=== PATIENT | male | born 1975 | race Caucasian/White ===

== ENCOUNTER 2025-03-07 23:50 | Emergency (ER) | payer BC, SELFPAY ==
[2025-03-07 23:56] VITALS: BP 135/88
--- NOTE | 2025-03-08 01:59 | ED.MUSCINJ ---
HPI-Injury
<Isis Ruizbrooklyn Corral GRICEL - Last Filed: 03/08/25 03:02>
General
Chief Complaint: Musculo-Skeletal Complaint
Source: patient
Time Seen by Provider: 03/08/25 01:53
History of Present Illness-Injury
Initial Injury comments:
Patient is a 49 y/o M who presents to ED with distal L 3rd digit ecchymosis and swelling after finger was caught on [employer] starter about 14 hours ago at home. Patient became concerned when finger began to swell and pain increased.
Past History
<Isis Ruizbrooklyn Corral GRICEL - Last Filed: 03/08/25 03:02>
Past History
ED Past Medical History: Hypercholesterolemia
ED Past Surgical History: Orthopedic
Social History
Tobacco: Non-smoker
Review of Systems
<Isis Alex Corral GRICEL - Last Filed: 03/08/25 03:02>
Review of Systems
Allergies reviewed?: Yes
Constitutional: Reports no symptoms
Respiratory: Reports no symptoms
Cardiac: Reports no symptoms
Musculoskeletal Injury Exam
<Isis Ruizbrooklyn Corral GRICEL - Last Filed: 03/08/25 03:02>
Musculoskeletal Injury Exam
Left Third Finger:
Pain with Movement?: Moderate
Tender to palpation?: Severe
Soft tissue swelling?: Severe
External deformity and angulation?: None
Joint effusion?: None
Contusion?: Severe
Hematoma-local bleeding into tissue?: None
Strain- Sprain- Tear (Connective tissue injury)?: Mild
Crepitus with movement?: No
Joint instability?: No
Malalignment/deformity?: No
Range of motion: Limited
Distal skin color and temperature: normal-warm & good color
Capillary Refill: normal
Normal distal neurovascular exam?: Yes
Phy Exam
<Isis Corral [facility] - Last Filed: 03/08/25 03:02>
General Physical Exam
General Presentation: well appearing and no apparent distress
General age: appears stated age
General Skin: warm and dry
General Habitus: normal
General Mental: alert
General Hydration: appears well hydrated
Cardiovascular Exam
Cardiovascular Exam: regular rate/rhythm
Heart Sounds: normal
Pulmonary Exam
Pulmonary Exam: lungs clear
Musculoskeletal Exam
Musculoskeletal Exam: full ROM, joint swelling (L 3rd distal phalanx ) and neuro vasc intact
Injury Course
<Isis Corral [facility] - Last Filed: 03/08/25 03:02>
Orders/Labs/Results
Orders:
Orders
03/08/25 00:00
CR Finger(s)/thumb Min 2 Vw Lt Urgent
Reason For Exam: injury, sweling & ecchymosis
Indicate Which Finger:: Middle Finger
03/08/25 02:07
Aluminium Finger Splint Left ONCE
<Catarina Daniel DO - Last Filed: 03/08/25 02:14>
Orders/Labs/Results
Orders:
Orders
03/08/25 00:00
CR Finger(s)/thumb Min 2 Vw Lt Urgent
Reason For Exam: injury, sweling & ecchymosis
Indicate Which Finger:: Middle Finger
03/08/25 02:07
Aluminium Finger Splint Left ONCE
<Isis Corral [facility] - Last Filed: 03/08/25 03:02>
MDM/Problems Addressed
Differential Diagnosis Includes:
Differential diagnosis includes but is not limited to:
1. Distal phalanx fracture
2. Contusion
3. Sprain
4. Strain
MDM/Problems Addressed:
1. L 3rd digit injury
- Finger xray 2 view minimum
-Ice for soft tissue swelling
-Ibuprofen as needed for pain
-Applied frog splint
-Follow up outpatient with orthopedics, hand specialist
<TEHO Singh - Last Filed: 03/08/25 03:02>
*Pulse Oximetry
SaO2: 97
Oxygen Mode of Delivery: Room air
<Catarina Daniel DO - Last Filed: 03/08/25 02:14>
*Radiology
Radiology exam reviewed: preliminary read by ED provider (Fracture of the distal phalanx long digit with mild dorsal displacement.)
*Pulse Oximetry
Patient hypoxic: no
*Critical Care Note
Total Time (30-74mins, 75-104mins- exclusive of procedures): Not Applicable
<THEO Singh - Last Filed: 03/08/25 03:02>
Update Note
Update Note:
Finger xray revealed L 3rd distal phalanx displaced fracture
ED Attending Note
<THEO Singh - Last Filed: 03/08/25 03:02>
-
Portions of this chart may have been created with voice recognition software.� Occasional wrong word or��sound alike� substitutions may have occurred due to the inherent limitations of voice recognition software.
<Catarina Daniel DO - Last Filed: 03/08/25 02:14>
ED Attending Note
Patient seen and examined by attending physician: Yes
I performed the substantive portion of visit, reviewed & personally made and approve the management plan that is documented in note by myself or JUANA.: Yes
ED Attending Note:
49-year-old gentleman with history of hypertension, hyperlipidemia presents with left long digit pain, swelling, bruising at the distal aspect of his finger when he inadvertently injured his finger while starting the lawnmower earlier today. He
denies weakness or numbness. He took ibuprofen 600 mg around 10 PM with moderate relief of pain.
49-year-old gentleman appears his stated age, bright and alert, pleasant, appears in no acute distress. Typing on his laptop.
Left long digit with moderate ecchymosis, soft tissue swelling distal aspect. Nail and nailbed are intact. There is no subungual hematoma. Finger has full range of motion. Distal sensation and strength intact.
X-ray reveals fracture of the mid aspect distal phalanx of the long digit. There is minimal dorsal displacement.
Patient will be placed in aluminum finger splint and will refer to orthopedics for follow-up.
He has been offered opioid pain medication which he declines. He will continue with ibuprofen as needed for pain.
Discharge Plan
Departure
Patient Disposition: Home (Routine Discharge)
Date of Disposition: 03/08/25
Time of Disposition: 02:10
Patient with high blood pressure during this ER visit?: No
Discharge Problem:
distal phalanx fracture L 3rd finger
Instructions: Finger Fracture ED
Prescriptions:
No Action
lisinopril 5 mg Tablet
5 mg PO DAILY
rosuvastatin 5 mg Tablet
5 mg PO DAILY
Referrals:
Jeb Smith MD [Active, Orthopedics] - Call in 1-3 days for appt
Interventions
Interventions:
*Risk Screen - Suicide Last Done: 03/07/25 23:56
*General Assessment Last Done: 03/07/25 23:56
*Neglect/Abuse Screening Last Done: 03/07/25 23:56
*ED- Fall Risk Assessment Last Done: 03/08/25 01:31
*ED COVID-19 Vaccine History Last Done: 03/08/25 01:31
*Nursing Disposition Last Done: 03/08/25 02:30
ED-Musculoskeletal Assessment Last Done: 03/08/25 01:31
Discharge Date and Time
Discharge Date/Time: 03/08/25 02:40
Print Language: MALAYSIAN
== END 2025-03-08 02:40 | disposition home or self-care (01) ==
LOC: EMR 23:50
PROVIDERS: EMERGENCY PHYSICIAN Emergency Medicine; FAMILY PHYSICIAN Internal Medicine
DX: S60.032A Contusion of left middle finger without damage to nail, initial encounter (principal); X58.XXXA Exposure to other specified factors, initial encounter; E78.00 Pure hypercholesterolemia, unspecified; I10 Essential (primary) hypertension
CPT/HCPCS: 99283; 29130; 73140